=== PATIENT | male | born 1995 | race Caucasian/White ===

== ENCOUNTER → 2021-09-24 | Outpatient (CLI) | payer MEDICARE, MEDICAID | END | disposition home or self-care (01) | LOC: COVID19 16:30 | PROVIDERS: ATTEND Internal Medicine | DX: Z11.52 Encounter for screening for COVID-19 (principal) ==

== ENCOUNTER 2021-09-25 05:25 | Emergency (ER) | payer MEDICARE, MEDICAID ==
[~2021-09-25] VITALS: Wt 46.7 kg
== END 2021-09-25 08:14 ==
LOC: ED 05:25
DX: I46.9 Cardiac arrest, cause unspecified (principal)